=== PATIENT | male | born 1980 | race African-American/Black ===

== ENCOUNTER 2016-11-19 02:20 | Emergency (ER) | payer BC ==
--- NOTE | 2016-11-24 19:43 | ER ---
ADMIT: 11/19/2016 RM/LOC: ER [facility] MR#: [id number] [place], [place] [id number] MAXI TRONCOSO [address] [place] [id number] Emergency Room Report SEX: M AGE: 36 : 1980 DATE: 11/19/2016 The patient is a 36-year-old [place] male, works at [employer], complains of increasing left posterior ear pain past 24 hours and drainage tonight after work. Denies any fevers, chills, or prior history of external otitis media. Exam remarkable for nontoxic, afebrile male with exquisitely tender left mastoid with boggy soft tissue and suppurative drainage. Culture was obtained. External canal noninflamed/nontender, but the entire ear tender to manipulation. CT of the mastoid air cell shows no air-fluid levels. Normal CBC, CMP, CRP, lactic acid, and procalcitonin. The patient was placed on Augmentin 875 b.i.d. x10 days, first dose in department, Toradol 30 mg IV push for pain, hydrocodone 5/325 as needed #20 plus 6. Follow up with Dr. Mariana Quiroga if not improved by Thursday. Vic Matamoros MD/ jael JOB #: [id number] CC: Vic Matamoros MD, Attending Physician Mariana Quiroga, Family Physician
== END 2016-11-19 04:20 | disposition home or self-care (01) ==
LOC: ER 02:20
DX: H70.92 Unspecified mastoiditis, left ear (principal)